=== PATIENT | female | born 1955 | race Caucasian/White ===

== ENCOUNTER 2019-09-24 09:36 | Emergency (ER) | payer MEDICARE, MEDICAID ==
[2019-09-24 09:48] VITALS: BP 142/85
[2019-09-24] MEDS ORDERED: oxyCODONE 5 MG TABLET PO STA ×2 (10:01→10:05)
[2019-09-24] MEDS ORDERED: GABAPENTIN 100 MG CAPSULE PO STA (10:06)
[2019-09-24] MEDS ORDERED: INDOMETHACIN 25 MG CAPSULE PO STA (10:06)
--- NOTE | 2019-09-24 10:08 | ED Physician Documentation ---
PD HPI UPPER EXT INJURY - Stated complaint Stated Complaint: L HAND INJURY - Chief complaint Chief Complaint: Ext Problem - History obtained from History obtained from: Patient - History of Present Illness Location: Left (63-year-old woman with a fall last night onto her left wrist. Initially it did not hurt too bad, but several hours later became much more painful. No other injuries.) Review of Systems Constitutional: reports: Reviewed and negative Nose: reports: Reviewed and negative Throat: reports: Reviewed and negative PD PAST MEDICAL HISTORY - Past Medical History Past Medical History: Yes Cardiovascular: Hypertension Endocrine/Autoimmune: Type 2 diabetes - Present Medications Home Medications: Ambulatory Orders Medication Instructions Recorded Confirmed predniSONE [Deltasone] 60 mg PO DAILY 5 Days #15 tablet 09/24/19 - Allergies Allergies/Adverse Reactions: Allergies Allergy/AdvReac Type Severity Reaction Status Date / Time Penicillins Allergy Anaphylaxis Verified 09/24/19 09:48 Sulfa (Sulfonamide Allergy Unknown Verified 09/24/19 09:48 Antibiotics) - Family History Family history: reports: Non contributory PD ED PE NORMAL - Vitals Vital signs reviewed: Yes - General General: Alert and oriented X 3, No acute distress - Extremities Extremities: Other (Mildly tender along the ulnar side of the left wrist and pain with radial deviation. No TTP/pain over the snuffbox or radial side of the wrist.) - Neuro Neuro: Alert and oriented X 3, Normal speech Results - Vitals Vitals: Vital Signs - 24 hr 09/24/19 09:47 Temperature 36.2 C L Heart Rate 70 Respiratory 19 Rate Blood Pressure 142/85 H O2 Saturation 100 Oxygen O2 Source Room air - Rads (name of study) 4 views of the left wrist x-ray Radiology: EMP read contemporaneously (No evidence of acute trauma some arthritis and old injuries) PD MEDICAL DECISION MAKING - ED course ED course: Initially she was requesting pain medication and 5 mg of oxycodone was ordered. Subsequently I reviewed her CHOLO., she is on chronic high-dose OxyContin and oxycodone, when queried about this, she says it is for chronic back and joint pain. She states that she only brought enough medication with her from home to cover her while she is here and requested an early refill. I discussed with her that we were happy to manage her pain while she was in the department, and to give her nonnarcotic prescription options, but I could not give her an early refill of her chronic pain medication. She did feel that the splint was very helpful though, Departure - Departure Disposition: 01 Home, Self Care Clinical Impression: Left wrist tendinitis Left wrist sprain Qualifiers: Encounter type: initial encounter Qualified Code(s): S63.502A - Unspecified sprain of left wrist, initial encounter Condition: Good Record reviewed to determine appropriate education?: Yes Instructions: ED Sprain Wrist Prescriptions: predniSONE [Deltasone] 60 mg PO DAILY 5 Days #15 tablet Comments: X-ray was negative, if no better in a week follow-up with your doctor for repeat evaluation potentially repeat x-rays. Continue routine pain medications, increase gabapentin to 300 mg 3 times a day for a couple of days.
--- NOTE | 2019-09-24 10:39 | XRAY Report ---
PROCEDURE: Wrist 4 View LT INDICATIONS: wrist inj TECHNIQUE: 4 views of the wrist were acquired. COMPARISON: None FINDINGS: Bones: Tiny calcification adjacent to the tip of the ulnar styloid is seen suggestive of old healed a vulsion injury. No acute wrist fracture or dislocation. Mild osteoarthritic changes along radial aspe ct of left wrist are seen. No suspicious bony lesions. Scaphoid view: Scaphoid is grossly intact. Soft tissues: There is mild wrist soft tissue swelling. 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 IMPRESSION: No acute wrist fracture or dislocation. Suggestion of old injury involving tip of ulnar styloid. Mild wrist joint osteoarthritis. Mild wrist soft tissue swelling. Reviewed by: Vasquez Ferrari MD on 09/24/2019 10:37 AM PDT Approved by: Vasquez Ferrari MD on 09/24/2019 10:37 AM PDT Station ID: [id number]
== END 2019-09-24 11:19 | disposition home or self-care (01) ==
LOC: ED 09:36
DX: M77.9 Enthesopathy, unspecified (principal); S63.502A Unspecified sprain of left wrist, initial encounter; W19.XXXA Unspecified fall, initial encounter; Y93.89 Activity, other specified; I10 Essential (primary) hypertension; E11.9 Type 2 diabetes mellitus without complications
CPT/HCPCS: 73110; 99283; A9270